=== PATIENT | male | born 1950 | race Two or more races ===

== ENCOUNTER 2021-05-06 06:47 | Outpatient (CLI) | payer OTHER | END 2021-05-06 07:13 | disposition home or self-care (01) | LOC: LAB 06:47 | PROVIDERS: ATTEND Internal Medicine Geriatric Medicine | DX: D50.9 Iron deficiency anemia, unspecified (principal); E03.9 Hypothyroidism, unspecified; E78.2 Mixed hyperlipidemia; I11.9 Hypertensive heart disease without heart failure; E56.8 Deficiency of other vitamins; N39.0 Urinary tract infection, site not specified; Z12.11 Encounter for screening for malignant neoplasm of colon; R19.5 Other fecal abnormalities; E55.9 Vitamin D deficiency, unspecified; N19 Unspecified kidney failure; R80.9 Proteinuria, unspecified; E11.22 Type 2 diabetes mellitus with diabetic chronic kidney disease; C22.0 Liver cell carcinoma; C61 Malignant neoplasm of prostate; D50.8 Other iron deficiency anemias; D57.3 Sickle-cell trait; D51.1 Vitamin B12 deficiency anemia due to selective vitamin B12 malabsorption with proteinuria; D51.3 Other dietary vitamin B12 deficiency anemia; B18.8 Other chronic viral hepatitis; I11.0 Hypertensive heart disease with heart failure; R74.02 Elevation of levels of lactic acid dehydrogenase [LDH]; K76.89 Other specified diseases of liver; D51.8 Other vitamin B12 deficiency anemias; D68.8 Other specified coagulation defects; D69.1 Qualitative platelet defects; R97.0 Elevated carcinoembryonic antigen [CEA]; R97.8 Other abnormal tumor markers; R97.20 Elevated prostate specific antigen [PSA] ==